=== PATIENT | female | born 1990 | race Asian ===

== ENCOUNTER 2023-08-19 08:16 | Inpatient (IN) ==
[2023-08-19] MEDS ORDERED: LIDOCAINE 1% LOCAL 20 ML VIAL INFIL PRN (08:38)
--- NOTE | 2023-08-19 08:43 | History & Physical Report ---
Date of Service August 19, 2023 Assessment & Plan (1) Normal labor: Plan: IUP at 38-4/7 weeks in active labor-membranes intact. GBS is negative. Patient is requesting epidural analgesia. Anticipate vaginal . History of Present Illness Primary Care Provider: NO PCP Patient is a 33-year-old G1, P0 female EDC 08/29/2023 who presents at 38-4/7 weeks in active labor. Her contractions are every 4 minutes they began approximately at 5 AM this morning. She had some bloody show but no ruptured membranes. GBS is negative. was only complicated by AMA status. testing was all reassuring. Allergies Allergy/AdvReac Type Severity Reaction Status Date / Time No Known Allergies Allergy Verified 08/18/23 13:01 Home Medications Medication Instructions Recorded Confirmed Type vit 168-iron 27 mg-folic cap PO 02/20/23 08/18/23 History acid 800 mcg-omega3 235 mg capsule (One-A-Day -1) Patient History Surgical History (Updated 02/20/23 @ 08:59 by Yelitza Hauser) H/O breast surgery Social History (Updated 02/20/23 @ 08:56 by Yelitza Hauser) Smoking Status: Never smoker Do You Dip or Chew Tobacco: No; marital status: marital status details: Keyur ([phone] Current Living Situation: Spouse Current Living Situation Comment: lives with spouse, 2 cats, spouse to change litter current occupational status: unemployed Review of Systems All systems reviewed & are unremarkable except as noted in HPI & below Physical Exam Constitutional: WD/WN, vitals as above Psychiatric: A+Ox3, euthymic affect Genitourinary: OB Exam Abdomen: + vertex and + regular contractions ([id number]) Manual OB Exam: + cervical dilation (5-6cm), + cervical effacement 100%, + station 0 and + amniotic fluid (intact & bulging) OB Exam Monitor Tracing: + external FHT monitor used, + external uterine monitor used, + category I and + normal FHT variability Code Status & VTE Plan VTE Prophylaxis Plan VTE Prophylaxis will be ordered: No Coding Level of Care Code None Diagnoses Normal labor O80; Z37.9
[2023-08-19] MEDS: LACTATED RINGER'S 1,000 ML IV PRN (09:06)
[2023-08-19 09:19] LABS: Hematocrit (blood only) 38.8 % (37.0-47.0); Hemoglobin 12.8 g/dl (12.0-16.0); Mean Corpuscular Hemoglobin 27.6 pg (25.0-34.0); Mean Corpuscular Volume 83.8 fL (80.0-100.0); Mean Platelet Volume 11.6 fL (9.4-12.4); Platelet Count 206 K/uL (130-400); RDW Coefficient of Variation 14.8 % (11.5-14.5); Red Blood Count 4.63 M/uL (4.20-5.40); White Blood Count 9.28 K/ul (4.8-10.8)
--- NOTE | 2023-08-19 10:01 | Anesthesiology Consultation ---
Date of Service August 19, 2023 Assessment & Plan Chart Review Chart Review: Patient NOT seen in Pre Admission Testing and Acceptable Risk for Labor Epidural Consults Requested none ASA ASA2 Proposed Anesthesia Anesthesia Type: Labor Epidural Risk / Benefits Reviewed With: PT / POA / Parent / Guardian, Accepts Plan and Informed Consent Obtained History Height/Weight Height: 5 ft 3 in Weight: 73.028 kg Allergies Allergy/AdvReac Type Severity Reaction Status Date / Time No Known Allergies Allergy Verified 08/18/23 13:01 Medications Home Medications Medication Instructions Recorded Confirmed Last Taken vit 168-iron 27 mg-folic 1 cap PO DAILY 02/20/23 08/19/23 08/18/23 08:00 acid 800 mcg-omega3 235 mg capsule (One-A-Day -1) Active Medications Generic Name Dose Route Start Last Admin Trade Name Freq PRN Reason Stop Dose Admin Lactated Ringer's 1,000 mls @ 125 mls/hr 08/19/23 09:02 08/19/23 09:06 Lr IV 08/21/23 09:01 999 mls/hr .Q8H PRN Administration L&D Protocol Protocol NPO Date Last Intake of Fluids: 08/19/23 Time Last Intake of Fluids: 07:00 Date Last Intake of Solids: 08/19/23 Time Last Intake of Solids: 08:00 Exercise / Class Metabolic Activity 1 > 8 Run/Swim/Ski/Tennis Past Surgical History Surgical History H/O breast surgery Past Anesthesia History No Hx of Anesthesia Complications and No Family Hx of Anesthesia Complications History of PONV No Hx of PONV and No Hx of Motion Sickness Social History Smoking Status: Never smoker Do You Dip or Chew Tobacco: No Hx Alcohol Use: No Hx Substance Use: No Review of Systems ROS Unobtainable: All systems reviewed & are unremarkable except as noted in HPI & below Physical Exam Vital Signs Last Vital Signs Temp 36.7 C 08/19/23 08:42 Pulse 66 08/19/23 08:43 Resp 20 08/19/23 08:42 BP 126/78 08/19/23 08:43 ENMT Mouth: no TMJ abnormality Thyromental Distance: > or= 3.5 Finger Breadths Mallampati Class: II Neck normal visual inspection and trachea midline; neck extension not limited Respiratory normal respiratory effort Auscultation: lungs clear to auscultation bilaterally Cardiovascular Rate/Rhythm: regular rate and regular rhythm Heart Sounds: no murmur Musculoskeletal Spine: normal cervical ROM Extremities: full ROM of extremities Neurologic moves all extremities Psychiatric Orientation: alert and oriented x 3 Testing Laboratory Results 08/19/23 08:56
[2023-08-19] MEDS: LIDOCAINE 2%/EPINEPHRINE 1:200,000 20 ML PF ONE (10:14)
[2023-08-19] MEDS: BUPIVACAINE 0.25% PF 30 ML VIAL ONE (10:14)
[2023-08-19] MEDS: fentANYL 2 MCG/ML BUPIVacaine 0.125%-NSS 100ML BAG ONE (10:14)
[2023-08-19] MEDS: fentaNYL citrate PF 100 MCG/2 ML VIAL ONE (10:15)
[2023-08-19] MEDS ORDERED: fentaNYL citrate PF 100 MCG/2 ML VIAL EPI PRN (10:19)
[2023-08-19] MEDS ORDERED: LIDOCAINE 2% MPF LOCAL 5 ML VIAL EPI PRN (10:19)
[2023-08-19] MEDS ORDERED: ROPIVACAINE 0.5% PF 5 MG/ML 20 ML VIAL EPI PRN (10:19)
[2023-08-19] MEDS ORDERED: BUPIVACAINE 0.25% PF 30 ML VIAL EPI PRN (10:19)
[2023-08-19] MEDS ORDERED: fentANYL 2 MCG/ML BUPIVacaine 0.125%-NSS 100ML BAG EPI PRN (10:19)
[2023-08-19] MEDS ORDERED: NALOXONE HCL 1 MG in SODIUM CHLORIDE 0.9% 1,000 ML IV PRN (10:19)
[2023-08-19] MEDS ORDERED: NALOXONE HCL 0.4 MG/1 ML VIAL/CARP IV PRN (10:19)
[2023-08-19] MEDS ORDERED: NALBUPHINE HCL 5 MG in SYRINGE 0 ML IV PRN (10:19)
[2023-08-19] MEDS ORDERED: SODIUM CHLORIDE 0.9% PF INJ 10 ML VIAL EPI PRN (10:19)
[2023-08-19] MEDS ORDERED: ePHEDrine sulfate 50 MG/ML AMP IV PRN (10:19)
[2023-08-19] MEDS ORDERED: diphenhydrAMINE 50 MG/ML VIAL IV PRN (10:19)
[2023-08-19] MEDS: OXYTOCIN 30 UNITS/NSS 30 UNITS/500 ML BAG IV PRN (15:00)
[2023-08-19] MEDS ORDERED: HYDROCORTISONE ACETATE 25 MG SUPP PR PRN (16:23)
[2023-08-19] MEDS ORDERED: ACETAMINOPHEN 325 MG TAB PO PRN (16:23)
[2023-08-19] MEDS ORDERED: OXYTOCIN 30 UNITS/NSS 30 UNITS/500 ML BAG IV PRN (16:23)
[2023-08-19] MEDS ORDERED: bisacodyL 10 MG SUPP PR PRN (16:23)
--- NOTE | 2023-08-19 16:24 | Anesthesia Procedure Note ---
Date of Service August 19, 2023 Anesthesia Post Epidural Note Vital Signs Vital Signs: Temp Pulse Resp BP Pulse Ox 36.9 C 100 H 18 136/63 98 08/19/23 13:00 08/19/23 16:05 08/19/23 16:05 08/19/23 16:05 08/19/23 15:16 Notes Mental Status: alert / awake / arousable and participated in evaluation Nausea / Vomiting: adequately controlled Pain: adequately controlled Airway Patency, RR, SpO2: stable & adequate BP & HR: stable & adequate Hydration State: stable & adequate Neuraxial Anesthesia: was administered and sensory block is resolving Anesthetic Complications: no major complications apparent Epidural: Removed without complications and With tip intact
[2023-08-19] MEDS: BUPIVACAINE 0.25% PF 30 ML VIAL EPI STA (16:42)
[2023-08-19] MEDS: ePHEDrine sulfate 50 MG/ML AMP ONE (16:42)
[2023-08-19] MEDS: SODIUM CHLORIDE 0.9% PF INJ 10 ML VIAL ONE (16:42)
[2023-08-19] MEDS: SODIUM CHLORIDE 0.9% PF INJ 10 ML VIAL EPI STA (16:43)
[2023-08-19] MEDS: LIDOCAINE 2%/EPINEPHRINE 1:200,000 20 ML PF EPI STA (16:43)
[2023-08-19] MEDS: fentaNYL citrate PF 100 MCG/2 ML VIAL EPI STA (16:43)
--- NOTE | 2023-08-19 16:46 | Delivery Summary ---
Vaginal Delivery Summary Date of Service August 19, 2023 Vaginal Delivery Summary and 2nd Degree LAC Progressed to 10 cm dilated, 100% effaced +2 station pushed over intact perineum with epidural anesthesia and delivered a viable male with weight and Apgars pending. Had the delivered in VINNY position answer just into left transverse. A single loose nuchal was noted which was easily reduced. Body and shoulders quickly followed. was noted to be vigorous soon after delivery and a 1 minute delayed cord clamping was initiated. Cord was double clamped and cut. remained on maternal abdomen and cord blood obtained. Attention was turned to live with placenta was delivered intact three-vessel cord gentle cord traction. Inspection of perineum vagina and cervix there is no to be a second-degree perineal laceration which repaired with 3-0 Vicryl in the traditional crown stitch. Needle sponge and instrument counts were correct at the completion of the case both mother and stable in the immediate post delivery period. Blood loss per QBL and no complications noted [facility] Vaginal Delivery Charge Delivery Type Details: and 2nd Degree LAC
[2023-08-19] MEDS: BENZOCAINE 20% SPRY 85 APPLN/85 GM CAN EXT PRN (17:19)
[2023-08-19] MEDS: DIPHTHER/TETAN/PERTUS Vaccine (Tdap, Adol/Adult) 0.5mL IM ONE (19:17)
[2023-08-19] MEDS: IBUPROFEN 600 MG TAB PO PRN (23:59)
[2023-08-20] MEDS: DOCUSATE SODIUM 100 MG CAP PO SCH
--- NOTE | 2023-08-20 08:35 | Obstetrical Progress Note ---
Date of Service August 20, 2023 Assessment & Plan (1) Encounter for care and examination after delivery: Day 1 status post vaginal delivery. Doing well. Routine care Subjective Ambulation: ambulating normally Voiding: no voiding problems Passing Gas:: Yes Diet Tolerance:: regular diet Lochia:: Moderate Feeding Type:: breast feeding Physical Exam Constitutional WD/WN, vitals as above Respiratory normal respiratory effort; no respiratory distress and no labored breathing Gastrointestinal (Abdomen) Inspection/Auscultation: abdomen normal to inspection; abdomen not distended Percussion/Palpation: abdomen soft; abdomen nontender, no guarding and abdomen not rigid Genitourinary OB Exam Abdomen: + fundal height Fundus: + firm and + relation to umbilicus (Below); not tender or not boggy Results & Data Vital Signs (Past 12 Hours) Vital Signs Temp Pulse Resp BP Pulse Ox O2 Del Method 08/20/23 02:35 36.9 C 75 18 111/74 95 Room Air 08/19/23 23:21 36.8 C 85 18 114/75 98 Room Air 08/19/23 21:10 36.9 C 77 18 124/81
[2023-08-20] MEDS: PRENATAL VITAMIN 1 TAB PO SCH (09:22)
[2023-08-20] MEDS: FERROUS SULFATE 325 MG TAB PO SCH (09:22)
[2023-08-20] MEDS: bisacodyL 5 MG TABEC PO SCH (20:44)
--- NOTE | 2023-08-21 06:40 | Obstetrical Progress Note ---
Date of Service August 21, 2023 Assessment & Plan (1) Encounter for care and examination after delivery: Day 2 status post vaginal delivery. Doing well. Stable for discharge Subjective Ambulation: ambulating normally Voiding: no voiding problems Passing Gas:: Yes Diet Tolerance:: regular diet Lochia:: Moderate Feeding Type:: breast feeding Physical Exam Constitutional WD/WN, vitals as above Respiratory normal respiratory effort; no respiratory distress and no labored breathing Cardiovascular Extremities: no calf tenderness Gastrointestinal (Abdomen) Inspection/Auscultation: abdomen normal to inspection; abdomen not distended Percussion/Palpation: abdomen soft; abdomen nontender, no guarding and abdomen not rigid Genitourinary OB Exam Abdomen: + fundal height Fundus: + firm and + relation to umbilicus (Below); not tender or not boggy Results & Data Vital Signs (Past 12 Hours) Vital Signs Temp Pulse Resp BP Pulse Ox O2 Del Method 08/20/23 23:02 36.6 C 77 18 113/74 95 Room Air 08/20/23 20:40 36.6 C 93 H 18 117/71 97 Room Air
== END 2023-08-21 20:00 | disposition home or self-care (01) | DRG 807 ==
LOC: 4S1 08:16 → OPB 08:16 → 4S1 08:38 → 4E2 18:47